=== PATIENT | female | born 1975 | race Two or more races ===

== ENCOUNTER 2020-01-12 18:51 | Emergency (ER) | payer SELFPAY ==
[~2020-01-12] VITALS: Ht 162.6 cm; Wt 65.0 kg
[2020-01-12] MEDS ORDERED: ACETAMINOPHEN 325MG TABLET PO ONE (19:45)
[2020-01-12] MEDS ORDERED: AMLODIPINE 2.5MG TABLET PO ONE (21:00)
[2020-01-12 21:32] VITALS: BP 138/95
== END 2020-01-12 22:45 | disposition home or self-care (01) ==
LOC: ER 18:51
DX: I16.0 Hypertensive urgency (principal)
CPT/HCPCS: 93005; 99283